=== PATIENT | female | born 1980 | race Caucasian/White ===

== ENCOUNTER → 2018-02-24 | Outpatient (CLI) | payer OTHER ==
[~2018-02-24] MED LIST: CEPHALEXIN 500500 M2 PO; FIORICET 50-321 EACH PO; MULTIVITAMINS1 EAC7; NORCO 5-325 TA1 EACH PO; POLYMYXIN B/TMP10 ML OP; ZOFRAN ODT4 MG PO
[2018-02-24 08:39] LABS: ALBUMIN 3.6 g/dL (3.4-5.0); ALKALINE PHOSPHATASE 78 U/L (46-116); ANION GAP 4 mmol/L (7-16); BUN 11 mg/dL (7-18); CALCIUM 8.5 mg/dL (8.5-10.1); CHLORIDE 105 mmol/L (98-107); CHOLESTEROL 168 mg/dL (<200); CO2 28 mmol/L (21-32); CREATININE 0.8 mg/dL (0.6-1.3); GLUCOSE 99 mg/dL (70-99); HDL CHOLESTEROL 59 mg/dL (>40); LDL CHOLESTEROL 89 mg/dL (<100); POTASSIUM 3.9 mmol/L (3.5-5.1); SGOT 17 U/L (15-37); SGPT 21 U/L (30-65); SODIUM 137 mmol/L (136-145); TC:HDL 2.8 Ratio (Not establshd); TOTAL BILIRUBIN 0.6 mg/dL (<0.1-1.0); TOTAL PROTEIN 6.7 g/dL (6.4-8.2); TRIGLYCERIDE 104 mg/dL (<150); VLDL 21 mg/dL (<40)
[2018-02-24 08:40] LABS: SERUM ASSESSMENT Clear
[2018-02-24 09:00] LABS: ABSOLUTE EOSINOPHILS 0.1 thou/uL (0.0-0.7); ABSOLUTE LYMPHOCYTES 2.2 thou/uL (0.8-5.3); ABSOLUTE MONOCYTES 0.4 thou/uL (0.0-1.2); ABSOLUTE NEUTROPHILS 2.9 thou/uL (1.6-8.1); BASOPHILS 0.6 %; EOSINOPHILS 2.2 %; HEMATOCRIT 40.7 % (37.0-47.0); HEMOGLOBIN 13.9 gm/dL (12.0-15.0); LYMPHOCYTES 39.1 %; MCV 94.2 fL (80.0-100.0); MONOCYTES 6.8 %; MPV 9.3 fl. (7.2-11.1); NUCLEATED RBCS 0 /100WBC; PLATELET COUNT* 192 thou/uL (150-400); POLYS 51.3 %; RBC 4.32 mil/uL (4.20-5.00); RDW-CV 11.8 % (10.5-14.5); WBC 5.6 thou/uL (4.0-11.0)
== END ==
LOC: M.LAB 08:09
PROVIDERS: Specialist
DX: R53.83 Other fatigue (principal)

== ENCOUNTER → 2018-09-16 | Outpatient (CLI) | payer OTHER | LOC: M.RAD 12:08 | DX: R06.02 Shortness of breath (principal) ==

== ENCOUNTER → 2019-02-25 | Outpatient (CLI) | payer OTHER ==
[2019-02-25 12:06] LABS: ABSOLUTE EOSINOPHILS 0.1 thou/uL (0.0-0.7); ABSOLUTE LYMPHOCYTES 1.5 thou/uL (0.8-5.3); ABSOLUTE MONOCYTES 0.6 thou/uL (0.0-1.2); ABSOLUTE NEUTROPHILS 6.4 thou/uL (1.6-8.1); BASOPHILS 0.5 %; EOSINOPHILS 0.7 %; HEMOGLOBIN 13.2 gm/dL (12.0-15.0); LYMPHOCYTES 17.7 %; MCH 32.2 pg (26.0-34.0); MCHC 34.7 g/dL (28.0-37.0); MCV 92.8 fL (80.0-100.0); MONOCYTES 7.4 %; MPV 8.5 fl. (7.2-11.1); NUCLEATED RBCS 0 /100WBC; PLATELET COUNT* 184 thou/uL (150-400); POLYS 73.7 %; RBC 4.09 mil/uL (4.20-5.00); RDW-CV 11.8 % (10.5-14.5); WBC 8.7 thou/uL (4.0-11.0)
[2019-02-25 12:22] LABS: ALBUMIN 3.5 g/dL (3.4-5.0); CALCIUM 8.8 mg/dL (8.5-10.1); CREATININE 0.9 mg/dL (0.6-1.3); POTASSIUM 3.8 mmol/L (3.5-5.1); TOTAL BILIRUBIN 0.2 mg/dL (<0.1-1.0); TOTAL PROTEIN 6.8 g/dL (6.4-8.2)
[2019-02-25 13:05] LABS: ESR (SEDRATE) 15 mm/hr (0-20)
== END ==
LOC: M.LAB 11:35
PROVIDERS: Specialist
DX: R53.83 Other fatigue (principal); M79.10 Myalgia, unspecified site

== ENCOUNTER 2020-03-21 14:23 | Emergency (ER) | payer OTHER ==
[~2020-03-21] VITALS: Ht 167.6 cm; Wt 54.4 kg
[2020-03-21 14:28] VITALS: BP 111/63
== END 2020-03-21 14:59 | disposition home or self-care (01) ==
LOC: M.ERS 14:23
DX: H57.89 Other specified disorders of eye and adnexa (principal); H57.12 Ocular pain, left eye

== ENCOUNTER → 2020-09-12 | Outpatient (CLI) | payer OTHER ==
--- NOTE | 2020-09-12 13:22 | 2DMMODE ---
[place] [address] 2 D/M-MODE ECHOCARDIOGRAM Name: KIM MCKEON Room: [facility]#: [id number] Admission: 09/12/20 Attend Phys: Lupillo Rascon Discharge: Date of : 82 Date of Service: 09/12/20 1322 Report #: [id number] THIS REPORT FOR: cc: Yan Christina. Yan Ballard. Elier Palma MD [facility] ~ APPROVED REPORT Study performed: 09/12/2020 10:41:45 EXAM: Comprehensive 2D, Doppler, and color-flow Echocardiogram Patient Location: Out-Patient BSA: 1.61 HR: 84 bpm Other Information Study Quality: Excellent Indications Dyspnea Palpitations Chest Pain 2D Dimensions IVSd: 6.79 (7-11mm) LVOT Diam: 20.02 (18-24mm) LVDd: 46.20 mm PWd: 6.64 (7-11mm) Ascending Ao: 26.23 (22-36mm) LVDs: 28.87 (25-40mm) Aortic Root: 24.61 mm Volumes Left Atrial Volume (Systole) LA ESV Index: 17.30 mL/m2 Aortic Valve AoV Peak Cody.: 1.14 m/s AO Peak Gr.: 5.22 mmHg LVOT Max P.83 mmHg AO Mean Gr.: 2.68 mmHg LVOT Mean P.23 mmHg LVOT Max V: 0.84 m/s AO V2 VTI: 20.51 cm LVOT Mean V: 0.50 m/s ISAIAS (VTI): 2.60 cm2 LVOT V1 VTI: 16.94 [place] [address] 2 D/M-MODE ECHOCARDIOGRAM Name: KIM MCKEON Room: [facility]#: [id number] Admission: 09/12/20 Attend Phys: Lupillo Rascon Discharge: Date of : 82 Date of Service: 09/12/20 1322 Report #: [id number] Mitral Valve E/A Ratio: 1.47 MV Decel. Time: 178.19 ms MV E Max Cody.: 0.78 m/s MV PHT: 51.67 ms MVA (PHT): 4.26 cm2 TDI E/Lateral E': 4.33 E/Medial E': 7.09 Medial E' Cody.: 0.11 m/s Lateral E' Cody.: 0.18 m/s Pulmonary Valve PV Peak Cody.: 0.77 m/s PV Peak Gr.: 2.39 mmHg Tricuspid Valve RAP Estimate: 5.00 mmHg TR Peak Gr.: 14.92 mmHg RVSP: 15.92 mmHg PA Pressure: 15.92 mmHg Left Ventricle The left ventricle is normal size. There is normal LV segmental wall motion. There is normal left ventricular wall thickness. Left ventricular systolic function is normal. The left ventricular ejection fraction is within the normal range. LVEF is 55-60%. The left ventricular diastolic function is normal. Right Ventricle The right ventricle is normal size. Right ventricular systolic function could not be assessed. Right ventricular systolic function is grossly normal. Atria The left atrium size is normal. The right atrium size is normal. Aortic Valve The aortic valve is normal in structure. No aortic regurgitation is present. There is no aortic valvular stenosis. Mitral Valve The mitral valve is normal in structure. Mild mitral regurgitation. No evidence of mitral valve stenosis. There is mild mitral valve prolapse[place] [address] 2 D/M-MODE ECHOCARDIOGRAM Name: KIM MCKEON Jaxson Room: [facility]#: [id number] Admission: 09/12/20 Attend Phys: Lupillo Rascon Discharge: Date of : 82 Date of Service: 09/12/20 1322 Report #: [id number] The tricuspid valve is normal in structure. Mild tricuspid regurgitation. Pulmonic Valve The pulmonary valve is normal in structure. Mild pulmonic regurgitation. Great Vessels The aortic root is normal in size. IVC is normal in size and collapses >50% with inspiration. Pericardium There is no pericardial effusion. <Conclusion> LVEF is 55-60%. Mild mitral regurgitation. Mild tricuspid regurgitation. <ELECTRONICALLY SIGNED> By: Elier Alcantar MD, [facility] 09/12/20 132 21 21 Elier Alcantar MD, FAC /INF
== END ==
LOC: M.CRD 10:58
PROVIDERS: ATTEND Specialist
DX: I08.8 Other rheumatic multiple valve diseases (principal); R00.2 Palpitations; R06.02 Shortness of breath; F41.9 Anxiety disorder, unspecified

== ENCOUNTER → 2021-01-03 | Outpatient (CLI) | payer OTHER | LOC: M.RAD 16:12 | PROVIDERS: ATTEND Registered Nurse Diabetes Educator | DX: M25.512 Pain in left shoulder (principal) ==

== ENCOUNTER → 2021-01-24 | Outpatient (CLI) | payer OTHER | LOC: M.MRI 14:01 | PROVIDERS: ATTEND Registered Nurse Diabetes Educator | DX: M25.512 Pain in left shoulder (principal) ==

== ENCOUNTER → 2021-04-03 | Outpatient (CLI) | payer OTHER | LOC: M.RAD 15:04 | PROVIDERS: ATTEND Specialist | DX: M79.671 Pain in right foot (principal) ==